=== PATIENT | female | born 1955 | race African-American/Black ===

== ENCOUNTER → 2017-06-09 | Outpatient (CLI) | payer MEDICARE ==
[2014-07-06 11:15] VITALS: BP 122/86
[~2017-06-09] MED LIST: ALBU8.5H8 IH; AZIT250T PO; Diltiazem Hcl PO; FERR325T14 PO; FURO-69 PO; Guaifenesin PO; HYDR-2680 PO; TIZA4TAB8 PO; TRAZ150T49 PO
== END | disposition home or self-care (01) ==
LOC: SURG 12:29
PROVIDERS: ATTEND Anesthesiology Pain Medicine
DX: M51.36 Other intervertebral disc degeneration, lumbar region (principal); I50.9 Heart failure, unspecified
CPT/HCPCS: 99213

== ENCOUNTER → 2017-09-01 | Outpatient (CLI) | payer MEDICARE ==
[2014-07-06 11:15] VITALS: BP 122/86
[~2017-09-01] MED LIST changes: +BUPIVACAINE MPF 0.25% 10 ML VIAL. ONE; +DEXAMETHASONE SOD PHOS 4 MG/ML VIAL ONE; +IOHEXOL 300 MG/ML 50 ML VIAL. ONE; +LIDOCAINE 1% PF 30 ML VIAL. ONE
== END ==
LOC: SURG 10:24
PROVIDERS: ATTEND Anesthesiology Pain Medicine
DX: M54.16 Radiculopathy, lumbar region (principal); M19.90 Unspecified osteoarthritis, unspecified site; I50.9 Heart failure, unspecified; J45.909 Unspecified asthma, uncomplicated; G47.30 Sleep apnea, unspecified
CPT/HCPCS: 64483; 64484; J1100; J2001; J3490; Q9967

== ENCOUNTER → 2018-02-09 | Outpatient (CLI) | payer MEDICARE ==
[2014-07-06 11:15] VITALS: BP 122/86
== END | disposition home or self-care (01) ==
LOC: SURG 08:32
PROVIDERS: ATTEND Anesthesiology Pain Medicine
DX: M47.816 Spondylosis without myelopathy or radiculopathy, lumbar region (principal); I25.2 Old myocardial infarction; G89.4 Chronic pain syndrome; Z88.8 Allergy status to other drugs, medicaments and biological substances; Z79.899 Other long term (current) drug therapy
CPT/HCPCS: 64483; 64484; J1100; J2001; J3490; Q9967

== ENCOUNTER → 2018-03-07 | Outpatient (CLI) | payer MEDICARE ==
[2014-07-06 11:15] VITALS: BP 122/86
[~2018-03-07] MED LIST changes: +LIDOCAINE 1% PF 2 ML VIAL. ONE; -LIDOCAINE 1% PF 30 ML VIAL. ONE; +LIDOCAINE 2% PF Vial for OR 5 ML VIAL. ONE
== END | disposition home or self-care (01) ==
LOC: SURG 11:33
PROVIDERS: ATTEND Anesthesiology Pain Medicine
DX: M47.26 Other spondylosis with radiculopathy, lumbar region (principal); I25.2 Old myocardial infarction; J45.909 Unspecified asthma, uncomplicated; G89.4 Chronic pain syndrome; G47.30 Sleep apnea, unspecified; Z79.899 Other long term (current) drug therapy; Z88.8 Allergy status to other drugs, medicaments and biological substances
CPT/HCPCS: 64483; 64484; J1100; J3490; Q9967; J2001

== ENCOUNTER → 2018-04-05 | Outpatient (CLI) | payer MEDICARE ==
[2014-07-06 11:15] VITALS: BP 122/86
[~2018-04-05] MED LIST changes: -BUPIVACAINE MPF 0.25% 10 ML VIAL. ONE; -DEXAMETHASONE SOD PHOS 4 MG/ML VIAL ONE; -IOHEXOL 300 MG/ML 50 ML VIAL. ONE; -LIDOCAINE 1% PF 2 ML VIAL. ONE; -LIDOCAINE 2% PF Vial for OR 5 ML VIAL. ONE
== END | disposition home or self-care (01) ==
LOC: SURG 14:30
PROVIDERS: ATTEND Anesthesiology Pain Medicine
DX: M47.26 Other spondylosis with radiculopathy, lumbar region (principal); G89.4 Chronic pain syndrome; J45.909 Unspecified asthma, uncomplicated; D64.89 Other specified anemias; F11.90 Opioid use, unspecified, uncomplicated
CPT/HCPCS: 99214

== ENCOUNTER → 2018-08-09 | Outpatient (CLI) | payer MEDICARE ==
[2014-07-06 11:15] VITALS: BP 122/86
[~2018-08-09] MED LIST changes: +0.9 % SODIUM CHLORIDE 10 ML VIAL ONE; +ALBU2.5V8 IH; -ALBU8.5H8 IH; +IOHEXOL 300 MG/ML 50 ML VIAL. ONE; +LIDOCAINE 1% PF 30 ML VIAL. ONE; +methylPREDNISolone ACETATE 80 MG/ML VIAL. ONE
== END | disposition home or self-care (01) ==
LOC: SURG 11:22
PROVIDERS: ATTEND Anesthesiology Pain Medicine
DX: M54.16 Radiculopathy, lumbar region (principal); I10 Essential (primary) hypertension; J45.909 Unspecified asthma, uncomplicated; I25.2 Old myocardial infarction; Z98.890 Other specified postprocedural states; Z79.899 Other long term (current) drug therapy; G89.4 Chronic pain syndrome; Z88.8 Allergy status to other drugs, medicaments and biological substances
CPT/HCPCS: 62323; J1040; J2001; Q9967

== ENCOUNTER 2019-02-23 18:58 | Inpatient (IN) | payer MEDICARE ==
[~2019-02-23] VITALS: Ht 157.5 cm; Wt 78.5 kg
[~2019-02-23 18:58] MED LIST changes: -0.9 % SODIUM CHLORIDE 10 ML VIAL ONE; -IOHEXOL 300 MG/ML 50 ML VIAL. ONE; -LIDOCAINE 1% PF 30 ML VIAL. ONE; -methylPREDNISolone ACETATE 80 MG/ML VIAL. ONE
--- NOTE | 2019-02-23 18:59 | ED.ADGEN ---
Past History Past Medical History: Anxiety, Asthma, Bronchitis, CAD, CHF, Hypertension, Other Past Surgical History: Coronary Bypass Surgery, Hysterectomy, Other Smoking: Cigarettes Alcohol Use: None Drug Use: None Adult General Chief Complaint Chief Complaint ". I am more short of breath today...." HPI HPI Patient is a 64 year old female who presents with above hx and complaints of dyspnea tht started 3 days ago. Patient has history of COPD, asthma, chronic bronchitis, coronary artery disease with bypass surgery 05/15/18, CHF, hypertension, tobacco use. Patient states she has been exposed to a sick friend recently who coughed and sneezed on her. Patient is concerned she may have been exposed to her friend's cold. No recent travel. No specific history of immunosuppression. Review of Systems Review of Systems Constitutional: Denies fever or chills [] Eyes: Denies change in visual acuity, redness, or eye pain [] HENT: Denies nasal congestion or sore throat [] Respiratory: Complains of a nonproductive cough and increased shortness of breath [] Cardiovascular: No additional information not addressed in HPI [] GI: Denies abdominal pain, nausea, vomiting, bloody stools or diarrhea [] : Denies dysuria or hematuria [] Musculoskeletal: Denies back pain or joint pain [] Integument: Denies rash or skin lesions [] Neurologic: Denies headache, focal weakness or sensory changes [] Endocrine: Denies polyuria or polydipsia [] All other systems were reviewed and found to be within normal limits, except as documented in this note. Family History Family History Noncontributory Current Medications Current Medications Current Medications Medications (Trade) Dose Ordered Sig/Jaime Start Time Stop Time Status Last Admin Dose Admin Acetaminophen (Tylenol) 650 mg PRN Q4HRS PRN 02/23/19 20:30 02/24/19 20:29 Albuterol/ Ipratropium (Duoneb) 3 ml STK-MED ONCE 02/23/19 19:11 02/23/19 19:11 DC Aspirin (Children'S Aspirin) 324 mg 1X ONCE 02/23/19 19:15 02/23/19 19:16 DC 02/23/19 20:29 324 MG Azithromycin (Zithromax) 500 mg 1X ONCE 02/23/19 19:45 02/23/19 19:46 DC 02/23/19 20:29 500 MG Ceftriaxone Sodium 1 gm/ Sodium Chloride 50 ml @ 100 mls/hr 1X ONCE 02/23/19 19:45 02/23/19 20:14 DC 02/23/19 20:29 100 MLS/HR Ceftriaxone Sodium (Rocephin) 1 gm STK-MED ONCE 02/23/19 20:21 02/23/19 20:21 DC Enoxaparin Sodium (Lovenox 60mg Syringe) 60 mg BID 02/23/19 21:00 02/23/19 20:51 60 MG Furosemide (Lasix) 40 mg 1X ONCE 02/23/19 20:30 02/23/19 20:31 DC 02/23/19 20:51 40 MG Lactated Ringer's 1,000 ml @ 100 mls/hr Q10H 02/23/19 19:01 02/24/19 05:00 Magnesium Sulfate 50 ml @ 25 mls/hr 1X ONCE 02/23/19 20:30 02/23/19 22:29 DC 02/23/19 20:47 25 MLS/HR Methylprednisolone Sodium Succinate (SOLU-Medrol 125MG VIAL) 125 mg 1X ONCE 02/23/19 19:15 02/23/19 19:16 DC 02/23/19 20:29 125 MG Morphine Sulfate (Morphine 2mg Syringe) 2 mg PRN Q4HRS PRN 02/23/19 20:30 02/24/19 20:29 02/24/19 03:48 2 MG Ondansetron HCl (Zofran) 4 mg PRN Q4HRS PRN 02/23/19 20:30 02/24/19 20:29 Sodium Chloride 50 ml @ As Directed STK-MED ONCE 02/23/19 20:21 02/23/19 20:21 DC Allergies Allergies Allergies Coded Allergies Type Severity Reaction Last Updated Verified cyclobenzaprine Allergy Severe hives 02/23/19 Yes Physical Exam Physical Exam Constitutional: Moderately Acute distress, non-toxic appearance. [] HENT: Normocephalic, atraumatic, bilateral external ears normal, oropharynx moist, no oral exudates, nose normal. [] Eyes: PERRLA, EOMI, conjunctiva normal, no discharge. [] Neck: Normal range of motion, no tenderness, supple, no stridor. [] JVD in the sitting position Cardiovascular:Heart rate regular rhythm, no murmur [], PMI to the left Lungs & Thorax: Bilateral breath sounds equal at apex with scattered wheezes throughout and bi-basilar crackles on auscultation []does have somewhat chronic nonproductive cough during exam Abdomen: Bowel sounds normal, soft, no tenderness, no masses, no pulsatile masses. [] Old surgery scar Skin: Warm, dry, no erythema, no rash. [] Back: No tenderness, no CVA tenderness. [] Extremities: No tenderness, no cyanosis, no clubbing, ROM intact, trace ankle edema. [] No cording appreciated Neurologic: Alert and oriented X 3, normal motor function, normal sensory function, no focal deficits noted. [] Psychologic: Affect anxious, judgement normal, mood normal. [] Current Patient Data Vital Signs Vital Signs Date Time Temp Pulse Resp B/P (MAP) Pulse Ox O2 Delivery O2 Flow Rate FiO2 02/23/19 20:50 84 28 136/86 (103) 96 Room Air 02/23/19 19:15 98.3 Lab Results Laboratory Tests Test 02/23/19 19:25 White Blood Count 9.5 x10^3/uL (4.0-11.0) Red Blood Count 5.07 x10^6/uL (3.50-5.40) Hemoglobin 13.8 g/dL (12.0-15.5) Hematocrit 41.9 % (36.0-47.0) Mean Corpuscular Volume 83 fL (79-100) Mean Corpuscular Hemoglobin 27 pg (25-35) Mean Corpuscular Hemoglobin Concent 33 g/dL (31-37) Red Cell Distribution Width 16.2 % (11.5-14.5) H Platelet Count 185 x10^3/uL (140-400) Neutrophils (%) (Auto) 79 % (31-73) H Lymphocytes (%) (Auto) 10 % (24-48) L Monocytes (%) (Auto) 6 % (0-9) Eosinophils (%) (Auto) 5 % (0-3) H Basophils (%) (Auto) 1 % (0-3) Neutrophils # (Auto) 7.5 x10^3uL (1.8-7.7) Lymphocytes # (Auto) 1.0 x10^3/uL (1.0-4.8) Monocytes # (Auto) 0.5 x10^3/uL (0.0-1.1) Eosinophils # (Auto) 0.4 x10^3/uL (0.0-0.7) Basophils # (Auto) 0.1 x10^3/uL (0.0-0.2) Erythrocyte Sedimentation Rate 6 (0-25) Prothrombin Time 9.9 SEC (9.4-11.4) Prothrombin Time INR 1.0 (0.9-1.1) Activated Partial Thromboplast Time 24 SEC (23-33) D-Dimer (Gavi) 0.84 mg/L (0.00-0.50) H Sodium Level 141 mmol/L (136-145) Potassium Level 3.6 mmol/L (3.5-5.1) Chloride Level 105 mmol/L (98-107) Carbon Dioxide Level 25 mmol/L (21-32) Anion Gap 11 (6-14) Blood Urea Nitrogen 20 mg/dL (7-20) Creatinine 1.4 mg/dL (0.6-1.0) H Estimated GFR (Cockcroft-Gault) 46.1 Glucose Level 121 mg/dL (70-99) H Lactic Acid Level 1.6 mmol/L (0.4-2.0) Calcium Level 8.8 mg/dL (8.5-10.1) Magnesium Level 1.7 mg/dL (1.8-2.4) L Total Bilirubin 0.4 mg/dL (0.2-1.0) Direct Bilirubin 0.1 mg/dL (0.0-0.2) Aspartate Amino Transferase (AST) 27 U/L (15-37) Alanine Aminotransferase (ALT) 20 U/L (14-59) Alkaline Phosphatase 77 U/L (46-116) Creatine Kinase 256 U/L (26-192) H Troponin I Quantitative 0.116 ng/mL (0-0.055) H IF-Wrr-P-Type Natriuretic Peptide 68901 pg/mL (0-124) H Total Protein 7.1 g/dL (6.4-8.2) Albumin 3.4 g/dL (3.4-5.0) Lipase 193 U/L (73-393) EKG EKG My interpretation of EKG shows a sinus rhythm at 79 bpm. Does have bimodal P- wave some leftward axis. LVH. There is some ST depression in lead I an II[] Radiology/Procedures Radiology/Procedures My interpretation chest x-ray shows cardiomegaly, chronic COPD changes, coronary artery bypass wires, some increased cephalization[] Course & Med Decision Making Course & Med Decision Making Pertinent Labs and Imaging studies reviewed. (See chart for details)\\\\ Pt. presentation, testing and tx plan discussed with Isaías- will admit and obtain a cardiology consult. [] Final Impression Final Impression 1. Dyspnea �3 days 2. History of asthma/bronchitis 3. COPD exacerbation 4. History coronary artery disease status post bypass 05/15/18 5. Elevated d-dimer 0.84 6 . Elevated troponin 0.116 7. CHF diastolic and systolic dysfunction BNP 14,000+ 8. Hypomagnesemia 1.7 9. Diabetes glucose 121 10. Elevated creatinine 1.4[] Dragon Disclaimer Dragon Disclaimer This electronic medical record was generated, in whole or in part, using a voice recognition dictation system. Dragon Disclaimer This chart was dictated in whole or in part using Voice Recognition software in a busy, high-work load, and often noisy Emergency Department environment. It may contain unintended and wholly unrecognized errors or omissions. Dragon Disclaimer This chart was dictated in whole or in part using Voice Recognition software in a busy, high-work load, and often noisy Emergency Department environment. It may contain unintended and wholly unrecognized errors or omissions. ELEAZAR MULLEN MD Feb 23, 2019 18:59
[2019-02-23] MEDS ORDERED: IV RINGERS SOLUTION,LACTATED 1,000 ML IV SCH (19:01)
[2019-02-23] MEDS ORDERED: IPRATRPIUM/ALBUTEROL 0.5/2.5MG 3 ML NEBU. ONE (19:11)
[2019-02-23] MEDS ORDERED: ASPIRIN 81 MG TAB.CHEW PO ONE (19:15)
[2019-02-23] MEDS ORDERED: methylPREDNISolone SOD SUCC PF 125 MG/2 ML VIAL. IV ONE (19:15)
[2019-02-23] MEDS ORDERED: LISI40TA PO (19:45)
[2019-02-23] MEDS ORDERED: AZITHROMYCIN 250 MG TABLET. PO ONE (19:45)
[2019-02-23 20:01] LABS: BASO # 0.1 x10^3/uL (0.0-0.2); BASO % 1 % (0-3); EOS # 0.4 x10^3/uL (0.0-0.7); EOS % 5 % (0-3); HEMATOCRIT 41.9 % (36.0-47.0); HEMOGLOBIN 13.8 g/dL (12.0-15.5); LYMPH % 10 % (24-48); MEAN CORPUSCULAR HEMOGLOBIN 27 pg (25-35); MEAN CORPUSCULAR HGB CONC 33 g/dL (31-37); MEAN CORPUSCULAR VOLUME 83 fL (79-100); MONO # 0.5 x10^3/uL (0.0-1.1); MONO % 6 % (0-9); NEUT # 7.5 x10^3uL (1.8-7.7); NEUT % 79 % (31-73); PLATELET COUNT 185 x10^3/uL (140-400); RED BLOOD COUNT 5.07 x10^6/uL (3.50-5.40); RED CELL DISTRIBUTION WIDTH 16.2 % (11.5-14.5); WHITE BLOOD COUNT 9.5 x10^3/uL (4.0-11.0)
[2019-02-23 20:09] LABS: ALBUMIN 3.4 g/dL (3.4-5.0); CALCIUM 8.8 mg/dL (8.5-10.1); CREATININE 1.4 mg/dL (0.6-1.0); DIRECT BILIRUBIN 0.1 mg/dL (0.0-0.2); GFR 46.1; MAGNESIUM 1.7 mg/dL (1.8-2.4); POTASSIUM 3.6 mmol/L (3.5-5.1); TOTAL BILIRUBIN 0.4 mg/dL (0.2-1.0); TOTAL PROTEIN 7.1 g/dL (6.4-8.2)
[2019-02-23] MEDS ORDERED: IV NORMAL SALINE 50ML 50 ML ONE (20:21)
[2019-02-23] MEDS ORDERED: cefTRIAXone SODIUM 1 GM VIAL ONE (20:21)
[2019-02-23] MEDS ORDERED: ENOXAPARIN ** NOTE DOSE ** SYRINGE SQ ONE (20:30)
[2019-02-23] MEDS ORDERED: MORPHINE SULFATE 2 MG/ML DISP.SYRIN. IV PRN (20:30)
[2019-02-23] MEDS ORDERED: ACETAMINOPHEN 325 MG TABLET PO PRN (20:30)
[2019-02-23] MEDS ORDERED: MAGNESIUM SULFATE 2GM 50 ML IV ONE (20:30)
[2019-02-23] MEDS ORDERED: ONDANSETRON PF 4 MG/2 ML VIAL. IV PRN (20:30)
[2019-02-23] MEDS ORDERED: FUROSEMIDE 40 MG/4 ML VIAL IVP ONE (20:30)
--- NOTE | 2019-02-23 20:35 | RAD ---
PA and lateral chest radiographs 02/23/2019 CLINICAL HISTORY: Shortness of breath and cough. PA and lateral digital radiographs of the chest were obtained. The patient is post median sternotomy. The cardiac silhouette is mildly enlarged. The thoracic aorta is mildly tortuous. No acute pulmonary infiltrate is seen. No pleural effusion or pneumothorax is noted. Mild degenerative changes are seen involving the thoracic spine. IMPRESSION: No acute abnormality is seen. Electronically signed by: Jair Regalado MD (02/23/2019 8:32 PM) [facility]
[2019-02-23] MEDS: ENOXAPARIN ** NOTE DOSE ** SYRINGE SQ SCH ×2 (20:48→20:50)
[2019-02-23] MEDS ORDERED: METO25TA4 PO (21:35)
[2019-02-23] MEDS ORDERED: BUDE10.2 IH (21:35)
[2019-02-23 22:05] LABS: BACTERIA,URINE 0 /HPF (0-FEW); BARBITURATES NEG (NEG); BENZODIAZEPINES NEG (NEG); BILIRUBIN,URINE NEG (NEG); CANNABINOIDS NEG (NEG); CLARITY,URINE CLEAR; COCAINE NEG (NEG); COLOR,URINE STRAW; GLUCOSE,URINE NEG (NEG); METHADONE NEG (NEG); NITRITE,URINE NEG (NEG); OPIATES NEG (NEG); PHENCYCLIDINE NEG (NEG); RBC,URINE RARE /HPF (0-2); SQUAMOUS EPITHELIAL CELL,UR OCC /LPF; UROBILINOGEN,URINE 0.2 mg/dL (0.2 mg/dL); WBC,URINE 0 /HPF (0-4)
[2019-02-23 22:07] LABS: AMPHETAMINE/METHAMPHETAMINE NEG (NEG)
[2019-02-23 22:09] VITALS: BP 150/102
[2019-02-24 01:55] VITALS: BP 164/95
[2019-02-24 03:03] VITALS: BP 138/87
[2019-02-24 06:08] VITALS: BP 125/72
[2019-02-24 07:00] LABS: BASO % 0 % (0-3); EOS % 0 % (0-3); HEMATOCRIT 42.4 % (36.0-47.0); HEMOGLOBIN 13.7 g/dL (12.0-15.5); LYMPH # 0.4 x10^3/uL (1.0-4.8); LYMPH % 6 % (24-48); MEAN CORPUSCULAR HEMOGLOBIN 27 pg (25-35); MEAN CORPUSCULAR HGB CONC 32 g/dL (31-37); MEAN CORPUSCULAR VOLUME 84 fL (79-100); MONO # 0.1 x10^3/uL (0.0-1.1); MONO % 1 % (0-9); NEUT # 6.4 x10^3uL (1.8-7.7); NEUT % 93 % (31-73); PLATELET COUNT 216 x10^3/uL (140-400); RED BLOOD COUNT 5.08 x10^6/uL (3.50-5.40); WHITE BLOOD COUNT 6.9 x10^3/uL (4.0-11.0)
[2019-02-24 07:15] LABS: CALCIUM 8.5 mg/dL (8.5-10.1); CREATININE 1.4 mg/dL (0.6-1.0); GFR 46.1; POTASSIUM 4.2 mmol/L (3.5-5.1)
--- NOTE | 2019-02-24 07:38 | RAD ---
LEFT LEG VENOUS DOPPLER STUDY: Clinical indications: Edema and elevated d-dimer.. Findings: Duplex sonography (including em scale evaluation and color flow and waveform spectral analysis) of the proximal aspect of the greater saphenous vein and the proximal aspect of the profunda femoral vein and the entire length of the common femoral and superficial femoral and popliteal veins and the tibioperoneal trunk and the proximal aspect of the posterior tibial and peroneal veins of the left leg was performed. Normal compressibility, augmentation of color Doppler flow after calf compression, and respiratory variation of Doppler flow is seen. Thus, there are no sonographic findings of deep venous thrombosis within these veins. Impression: There are no sonographic findings of deep venous thrombosis within the veins discussed above of the left lower extremity. RIGHT LEG VENOUS DOPPLER STUDY: Clinical indications: Edema and elevated d-dimer.. Findings: Duplex sonography (including em scale evaluation and color flow and waveform spectral analysis) of the proximal aspect of the greater saphenous vein and proximal aspect of the profunda femoral vein and the entire length of the common femoral and superficial femoral and popliteal veins and the tibioperoneal trunk and the proximal aspect of the posterior tibial and peroneal veins of the right leg was performed. Normal compressibility, augmentation of color Doppler flow after calf compression, and respiratory variation of Doppler flow is seen. Thus, there are no sonographic findings of deep venous thrombosis within these veins. Impression: There are no sonographic findings of deep venous thrombosis within the veins discussed above of the right lower extremity. Electronically signed by: Joey Craig MD (02/24/2019 7:36 AM) [facility]
[2019-02-24] MEDS ORDERED: HYDROcodone/APAP 10/325 1 TAB TABLET PO PRN (08:00)
[2019-02-24] MEDS: IPRATRPIUM/ALBUTEROL 0.5/2.5MG 3 ML NEBU. NEB SCH ×2 (08:18→09:20)
[2019-02-24] MEDS: ENOXAPARIN ** NOTE DOSE ** SYRINGE SQ SCH (08:19)
[2019-02-24] MEDS ORDERED: guaiFENesin DM 600/30MG 1 TAB TAB.ER.12H PO SCH (09:00)
[2019-02-24] MEDS ORDERED: LACTOBACILLUS RHAMNOSUS GG 1 CAPSULE. PO SCH (09:00)
[2019-02-24] MEDS ORDERED: AZITHROMYCIN 250 MG TABLET. PO SCH (09:00)
[2019-02-24] MEDS ORDERED: ASPIRIN 81 MG TAB.CHEW PO SCH (09:00)
[2019-02-24] MEDS ORDERED: METOPROLOL TART IMMED RELEASE 25 MG TABLET PO SCH (09:00)
--- NOTE | 2019-02-24 10:37 | PDOC2 ---
CONSULT Date of Admission DATE: 02/24/19 TIME: 10:37 Reason for Consult: Congestive heart failure Referring Physician: Dr. Metz Chief Complaint Shortness of breath Source: Chart review, Patient Problem List Problems Medical Problems: (1) Dyspnea Status: Acute History of Present Illness 64-year-old female with history of coronary artery disease s/p CABG presented complaining of 2-3 day history of progressive shortness of breath. She denied any chest pain, palpitations or syncope. Her symptoms improved significantly after diuresis. Upon further interrogation, she stated that she has not been compliant with her oral salt intake restrictions. Past Medical History Coronary artery disease s/p CABG in April 2018, followed by [facility] cardiology COPD/asthma Hypertension Hyperlipidemia Past Surgical History Coronary artery bypass surgery Lumpectomy Laparotomy Family History: Hypertension Social History Patient quit smoking 9 months ago and admitted to social intake of alcohol. She denied any drug abuse. Current Medications Current Medications Aspirin (Children'S Aspirin) 324 mg 1X ONCE PO Last administered on 02/23/19at 20:29; Start 02/23/19 at 19:15; Stop 02/23/19 at 19:16; Status DC Lactated Ringer's 1,000 ml @ 100 mls/hr Q10H IV ; Start 02/23/19 at 19:01; Stop 02/24/19 at 05:00; Status DC Methylprednisolone Sodium Succinate (SOLU-Medrol 125MG VIAL) 125 mg 1X ONCE IV Last administered on 02/23/19at 20:29; Start 02/23/19 at 19:15; Stop 02/23/19 at 19:16; Status DC Albuterol/ Ipratropium (Duoneb) 3 ml STK-MED ONCE .ROUTE ; Start 02/23/19 at 19:11; Stop 02/23/19 at 19:11; Status DC Azithromycin (Zithromax) 500 mg 1X ONCE PO Last administered on 02/23/19at 20:29; Start 02/23/19 at 19:45; Stop 02/23/19 at 19:46; Status DC Ceftriaxone Sodium 1 gm/ Sodium Chloride 50 ml @ 100 mls/hr 1X ONCE IV Last administered on 02/23/19at 20:29; Start 02/23/19 at 19:45; Stop 02/23/19 at 20:14; Status DC Magnesium Sulfate 50 ml @ 25 mls/hr 1X ONCE IV Last administered on 02/23/19at 20:47; Start 02/23/19 at 20:30; Stop 02/23/19 at 22:29; Status DC Furosemide (Lasix) 40 mg 1X ONCE IVP Last administered on 02/23/19at 20:51; Start 02/23/19 at 20:30; Stop 02/23/19 at 20:31; Status DC Sodium Chloride 50 ml @ As Directed STK-MED ONCE .ROUTE ; Start 02/23/19 at 20:21; Stop 02/23/19 at 20:21; Status DC Ceftriaxone Sodium (Rocephin) 1 gm STK-MED ONCE .ROUTE ; Start 02/23/19 at 20:21; Stop 02/23/19 at 20:21; Status DC Enoxaparin Sodium (Lovenox 60mg Syringe) 60 mg 1X ONCE SQ Last administered on 02/23/19at 20:47; Start 02/23/19 at 20:30; Stop 02/23/19 at 20:31; Status DC Ondansetron HCl (Zofran) 4 mg PRN Q4HRS PRN IV NAUSEA/VOMITING; Start 02/23/19 at 20:30; Stop 02/24/19 at 20:29 Morphine Sulfate (Morphine 2mg Syringe) 2 mg PRN Q4HRS PRN IV PAIN Last administered on 02/24/19at 03:48; Start 02/23/19 at 20:30; Stop 02/24/19 at 20:29 Acetaminophen (Tylenol) 650 mg PRN Q4HRS PRN PO FEVER; Start 02/23/19 at 20:30; Stop 02/24/19 at 20:29 Albuterol/ Ipratropium (Duoneb) 3 ml RTQID NEB Last administered on 02/24/19at 09:22; Start 02/24/19 at 08:00; Stop 02/25/19 at 07:59 Enoxaparin Sodium (Lovenox 60mg Syringe) 60 mg BID SQ Last administered on 02/24/19at 08:19; Start 02/23/19 at 21:00 Aspirin (Children'S Aspirin) 81 mg DAILY PO Last administered on 02/24/19at 08:19; Start 02/24/19 at 09:00 Azithromycin (Zithromax) 250 mg DAILY PO Last administered on 02/24/19at 08:19; Start 02/24/19 at 09:00 Lactobacillus Rhamnosus (Culturelle) 1 cap BID PO Last administered on 02/24/19at 08:19; Start 02/24/19 at 09:00 Acetaminophen/ Hydrocodone Bitart (Lortab 10/325) 1 tab PRN BID PRN PO PAIN; Start 02/24/19 at 08:00 Metoprolol Tartrate (Lopressor) 25 mg BID PO Last administered on 02/24/19at 08:19; Start 02/24/19 at 09:00 Guaifenesin (MUCINEX ER with DM) 1 tab BID PO Last administered on 02/24/19at 08:19; Start 02/24/19 at 09:00 Active Scripts Active [Guaifenesin] 600 MG Tablet.er 600 Mg PO DAILY Reported Metoprolol Tartrate 25 Mg Tablet 25 Mg PO BID Symbicort 160-4.5 Mcg Inhaler (Budesonide/Formoterol Fumarate) 10.2 Gm Hfa.aer.ad 2 Puff IH BID Proair Hfa Inhaler (Albuterol Sulfate) 8.5 Gm Hfa.aer.ad 8.5 Gm IH PRN Q8HRS PRN Indication: Breathing treatment Last Dose: 11/15/13 at 1400 Next Dose: 11/15/13 at 7 PM Lortab 10-325 mg Tablet (Hydrocodone/Acetaminophen) 1 Each Tablet 1 Each PO BID last dose: 11/15/13 at 0800 Allergies: Coded Allergies: cyclobenzaprine (Verified Allergy, Severe, hives, 02/23/19) PSYCHOLOGICAL ROS: No: Hallucinations Eyes: No: Loss of vision HEENT: No: Epistaxis Respiratory: YES: Shortness of breath Cardiovascular: No: Chest Pain Gastrointestinal: No: Vomiting, Diarrhea Genitourinary: No: [place] Neurological: No: Seizures Skin: No: Rash General: Alert, Oriented X3 HEENT: Atraumatic, PERRLA Lungs: Clear to auscultation Heart: Regular rate Abdomen: Soft Extremities: No edema Psych/Mental Status: Mood NL VITALS Vital Signs Date Time Temp Pulse Resp B/P (MAP) Pulse Ox O2 Delivery O2 Flow Rate FiO2 02/24/19 09:22 97 Room Air 02/24/19 08:19 98 125/72 02/24/19 06:08 98.0 18 2.0 Labs Laboratory Tests Test 02/23/19 19:25 02/23/19 21:41 02/24/19 06:22 02/24/19 07:41 White Blood Count 9.5 x10^3/uL (4.0-11.0) 6.9 x10^3/uL (4.0-11.0) Red Blood Count 5.07 x10^6/uL (3.50-5.40) 5.08 x10^6/uL (3.50-5.40) Hemoglobin 13.8 g/dL (12.0-15.5) 13.7 g/dL (12.0-15.5) Hematocrit 41.9 % (36.0-47.0) 42.4 % (36.0-47.0) Mean Corpuscular Volume 83 fL (79-100) 84 fL (79-100) Mean Corpuscular Hemoglobin 27 pg (25-35) 27 pg (25-35) Mean Corpuscular Hemoglobin Concent 33 g/dL (31-37) 32 g/dL (31-37) Red Cell Distribution Width 16.2 % (11.5-14.5) 16.0 % (11.5-14.5) Platelet Count 185 x10^3/uL (140-400) 216 x10^3/uL (140-400) Neutrophils (%) (Auto) 79 % (31-73) 93 % (31-73) Lymphocytes (%) (Auto) 10 % (24-48) 6 % (24-48) Monocytes (%) (Auto) 6 % (0-9) 1 % (0-9) Eosinophils (%) (Auto) 5 % (0-3) 0 % (0-3) Basophils (%) (Auto) 1 % (0-3) 0 % (0-3) Neutrophils # (Auto) 7.5 x10^3uL (1.8-7.7) 6.4 x10^3uL (1.8-7.7) Lymphocytes # (Auto) 1.0 x10^3/uL (1.0-4.8) 0.4 x10^3/uL (1.0-4.8) Monocytes # (Auto) 0.5 x10^3/uL (0.0-1.1) 0.1 x10^3/uL (0.0-1.1) Eosinophils # (Auto) 0.4 x10^3/uL (0.0-0.7) 0.0 x10^3/uL (0.0-0.7) Basophils # (Auto) 0.1 x10^3/uL (0.0-0.2) 0.0 x10^3/uL (0.0-0.2) Erythrocyte Sedimentation Rate 6 (0-25) Prothrombin Time 9.9 SEC (9.4-11.4) Prothromb Time International Ratio 1.0 (0.9-1.1) Activated Partial Thromboplast Time 24 SEC (23-33) D-Dimer (Gavi) 0.84 mg/L (0.00-0.50) Sodium Level 141 mmol/L (136-145) 136 mmol/L (136-145) Potassium Level 3.6 mmol/L (3.5-5.1) 4.2 mmol/L (3.5-5.1) Chloride Level 105 mmol/L (98-107) 102 mmol/L (98-107) Carbon Dioxide Level 25 mmol/L (21-32) 22 mmol/L (21-32) Anion Gap 11 (6-14) 12 (6-14) Blood Urea Nitrogen 20 mg/dL (7-20) 22 mg/dL (7-20) Creatinine 1.4 mg/dL (0.6-1.0) 1.4 mg/dL (0.6-1.0) Estimated GFR (Cockcroft-Gault) 46.1 46.1 Glucose Level 121 mg/dL (70-99) 286 mg/dL (70-99) Lactic Acid Level 1.6 mmol/L (0.4-2.0) Calcium Level 8.8 mg/dL (8.5-10.1) 8.5 mg/dL (8.5-10.1) Magnesium Level 1.7 mg/dL (1.8-2.4) Total Bilirubin 0.4 mg/dL (0.2-1.0) Direct Bilirubin 0.1 mg/dL (0.0-0.2) Aspartate Amino Transf (AST/SGOT) 27 U/L (15-37) Alanine Aminotransferase (ALT/SGPT) 20 U/L (14-59) Alkaline Phosphatase 77 U/L (46-116) Creatine Kinase 256 U/L (26-192) Troponin I Quantitative 0.116 ng/mL (0-0.055) 0.058 ng/mL (0-0.055) SP-Hza-L-Type Natriuretic Peptide 97711 pg/mL (0-124) Total Protein 7.1 g/dL (6.4-8.2) Albumin 3.4 g/dL (3.4-5.0) Lipase 193 U/L (73-393) Urine Collection Type Unknown Urine Color Straw Urine Clarity Clear Urine pH 5.5 Urine Specific [place] 1.010 Urine Protein Neg (NEG-TRACE) Urine Glucose (UA) Neg mg/dL (NEG) Urine Ketones (Stick) Neg mg/dL (NEG) Urine Blood Trace (NEG) Urine Nitrite Neg (NEG) Urine Bilirubin Neg (NEG) Urine Urobilinogen Dipstick 0.2 mg/dL (0.2 mg/dL) Urine Leukocyte Esterase Neg (NEG) Urine RBC Rare /HPF (0-2) Urine WBC 0 /HPF (0-4) Urine Squamous Epithelial Cells Occ /LPF Urine Bacteria 0 /HPF (0-FEW) Urine Opiates Screen Neg (NEG) Urine Methadone Screen Neg (NEG) Urine Barbiturates Neg (NEG) Urine Phencyclidine Screen Neg (NEG) Urine Amphetamine/Methamphetamine Neg (NEG) Urine Benzodiazepines Screen Neg (NEG) Urine Cocaine Screen Neg (NEG) Urine Cannabinoids Screen Neg (NEG) Urine Ethyl Alcohol Neg (NEG) Glucose (Fingerstick) 172 mg/dL (70-99) Assessment/Plan 1. Congestive heart failure, most probably acute on chronic diastolic. Symptoms improved with diuresis. Importance of compliance with oral fluid and salt intake restrictions reemphasized. Continue current medical regimen and follow-up with primary cardiology. 2. CAD s/p recent CABG in April 2019, clinically stable and chest pain-free. Continue current secondary prevention measures. 3. Hypertension: Controlled Thank you for your consultation MAGGIE BARRETT MD Feb 24, 2019 10:37
[2019-02-24 10:45] LABS: THYROID STIM HORMONE (TSH) 2.159 uIU/mL (0.358-3.740)
[2019-02-24] MEDS ORDERED: FUROSEMIDE 40 MG/4 ML VIAL IVP ONE (11:00)
[2019-02-24 11:36] VITALS: BP 115/65
[2019-02-24] MEDS ORDERED: FURO-69 PO (13:32)
--- NOTE | 2019-02-24 14:19 | SSS ---
ADMIT DATE: HISTORY OF PRESENT ILLNESS: Ms. Bosch is a 64-year-old -[place] female patient who came to the Emergency Room complaining of increasing shortness of breath that has started about 3 days ago. She apparently is known to have COPD/asthma and chronic bronchitis, coronary artery disease for which she underwent bypass surgery on 05/15/2018. She is known to have congestive heart failure, hypertension. She has been exposed to a sick friend recently who coughed and sneezed on her. Patient is concerned that she may have been exposed to her friend's cold. She was basically extensively investigated and her EKG showed that she was in sinus rhythm with a rate of 79 beats per minute, but no ST segment elevation or depression. Chest x-ray showed chronic COPD changes. She has had lab work done, which basically showed no leukocytosis. Her sed rate was only 6 mm per hour and D-dimer was 0.84 and her chemistry showed that her first set of troponin was 0.116; and therefore, the patient was admitted to consult the cardiology team. PAST MEDICAL HISTORY: Significant for hypertension, hyperlipidemia, coronary artery disease, status post coronary bypass surgery on 05/15/2018. She is also known to have chronic obstructive pulmonary disease/bronchial asthma and history of cardiac arrest prior to her open heart surgery. PAST SURGICAL HISTORY: Significant for coronary artery bypass graft surgery, removal of growth from her right shoulder and left breast lumpectomy, exploratory laparotomy for bowel obstruction. ALLERGIES: She is allergic to FLEXERIL. MEDICATIONS: She is currently on following medications: She is on albuterol sulfate for ProAir 1 puff every 8 hours, metoprolol tartrate 25 mg twice a day, hydrocodone/APAP 10/325 one tablet twice a day. She is on Symbicort 160/4.5 two puffs twice a day, Mucinex 600 mg twice a day. FAMILY HISTORY: She has one sister, younger and healthy. Father , but does not know the age or the cause of his . Mother has sickle cell disease and at the age of 60. SOCIAL HISTORY: She is , she has 2 daughters and 2 sons. She quit smoking 9 months ago prior to her coronary bypass surgery. She drinks wine occasionally. Does not use any drugs. REVIEW OF SYSTEMS: As per history of present illness. PHYSICAL EXAMINATION GENERAL: When I examined her, she looked well and was clearly in no apparent respiratory distress. No pallor, jaundice, cyanosis or thyromegaly. No jugular venous distention. No lower limb edema. VITAL SIGNS: Her heart rate was 98, blood pressure was 125/72, temperature was 98, respiratory rate was 18 and oxygen saturation was 98% on room air. HEAD, EYES, EARS, NOSE AND THROAT: Showed normocephalic, atraumatic. NECK: Supple. HEART: Showed normal first and second heart sounds with no gallop or murmur. CHEST: Clear to auscultation. Very few scattered rhonchi and few bilateral basal crepitation. ABDOMEN: Distended, soft, nontender. NEUROLOGIC: She is awake, alert, responding appropriately. All cranial nerves intact. EXTREMITIES: She moves extremities without difficulty. LABORATORY DATA: While in the Emergency Room, she has had lab work done, which showed a white cell count of 9500, hemoglobin 13.8, hematocrit 42, MCV 83 and platelet count of 185,000. Her chemistry showed a serum sodium of 141, potassium 3.6, chloride 105, bicarbonate 25, anion gap of 11, BUN 20, creatinine 1.4, estimated GFR was 46 mL per minute. Her glucose 121, calcium was 8.8, magnesium was 1.7. Total bilirubin, AST, ALT, alkaline phosphatase were normal. CK was high at 259. Troponin was 0.116. Her beta natriuretic peptide was 14,148. Total protein 7.1, albumin was 3.4. Her serum lipase 193. ASSESSMENT AND PLAN: The patient was admitted and had another set of cardiac enzyme, showed troponin down to 0.058. She was seen by the Cardiology team who did not really recommend any further ischemic workup, but she has coronary bypass graft surgery only 9 months ago and she was treated with Lasix. I recommended the patient can be discharged to continue on oral Lasix and follow with her primary care physician. She apparently has dietary indiscretion and took large amount of cashew nuts with salt. MEDICATIONS: She was discharged home to continue on Lasix 20 mg once a day, albuterol sulfate 1 inhaler every 8 hours. Continue with Symbicort 2 puffs twice a day, Mucinex 600 mg twice a day, hydrocodone/APAP 10/325 twice a day, metoprolol 25 mg twice a day. ASSESSMENT AND PLAN: Acute diastolic congestive heart failure, responding to Lasix. Other medical problems include mild elevated troponin, coronary artery disease, status post coronary artery bypass surgery, chronic obstructive pulmonary disease, chronic kidney injury on questionable type 2 diabetes. The patient was advised to avoid high salt diet and nonsteroidal anti-inflammatory medication. Follow with her primary care physician regarding her possible hyperglycemia and diabetes. ONUR GONZALEZ MD DR: DORETHA/shari JOB#: [id number] / [id number]
--- NOTE | 2019-02-25 03:36 | EKG ---
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
--- NOTE | 2019-02-25 03:36 | EKG ---
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
[2019-02-25] MEDS ORDERED: FUROSEMIDE 20 MG TABLET PO SCH (09:00)
[2019-02-26 00:06] LABS: HEMOGLOBIN A1C 5.7 % (4.8-5.6)
== END 2019-02-24 14:07 | disposition home or self-care (01) | DRG 292 ==
LOC: ER 18:58 → 1 SOUTH 21:10
PROVIDERS: ADMIT Internal Medicine; ATTEND Internal Medicine
DX: I11.0 Hypertensive heart disease with heart failure (principal); J44.1 Chronic obstructive pulmonary disease with (acute) exacerbation; E78.5 Hyperlipidemia, unspecified; I50.33 Acute on chronic diastolic (congestive) heart failure; I25.10 Atherosclerotic heart disease of native coronary artery without angina pectoris; F41.9 Anxiety disorder, unspecified; E83.42 Hypomagnesemia; Z82.49 Family history of ischemic heart disease and other diseases of the circulatory system; Z83.2 Family history of diseases of the blood and blood-forming organs and certain disorders involving the immune mechanism; Z86.74 Personal history of sudden cardiac arrest; Z87.891 Personal history of nicotine dependence; Z91.19 Patient's noncompliance with other medical treatment and regimen; Z95.1 Presence of aortocoronary bypass graft; Z88.8 Allergy status to other drugs, medicaments and biological substances
CPT/HCPCS: 36415; 71046; 80048; 80061; 80076; 80307; 81001; 82550; 82947; 83036; 83605; 83690; 83735; 83880; 84443; 84484; 85025; 85379; 85610; 85651; 85730; 87040; 93005; 93970; 94640; 96365; 96372; 96375; G0238; J0456; J0696; J1650; J1940; J2270; J2930; J3475; J7620; 99285-25

== ENCOUNTER 2019-07-10 08:40 | Emergency (ER) | payer MEDICARE ==
[~2019-07-10] VITALS: Ht 157.5 cm; Wt 79.8 kg
[~2019-07-10 08:40] MED LIST changes: +BUDE10.2 IH; +LISI40TA PO; +METO25TA4 PO
[2019-07-10 08:44] VITALS: BP 157/77
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
[2019-07-10] MEDS ORDERED: HYDROcodone/APAP 10/325 1 TAB TABLET ONE (10:20)
[2019-07-10] MEDS ORDERED: HYDROcodone/APAP 10/325 1 TAB TABLET PO ONE (10:30)
== END 2019-07-10 10:43 | disposition home or self-care (01) ==
LOC: ER 08:40
DX: S16.1XXA Strain of muscle, fascia and tendon at neck level, initial encounter (principal); R51 Headache; I10 Essential (primary) hypertension; F17.210 Nicotine dependence, cigarettes, uncomplicated; G89.29 Other chronic pain; Z95.1 Presence of aortocoronary bypass graft; Z88.8 Allergy status to other drugs, medicaments and biological substances; Z90.710 Acquired absence of both cervix and uterus; V43.52XA Car driver injured in collision with other type car in traffic accident, initial encounter; Y93.89 Activity, other specified; Y92.488 Other paved roadways as the place of occurrence of the external cause; Y99.8 Other external cause status
CPT/HCPCS: 70450; 72125; 99284

== ENCOUNTER 2019-09-02 20:52 | Emergency (ER) | payer MEDICARE ==
[~2019-09-02] VITALS: Ht 157.5 cm; Wt 79.8 kg
--- NOTE | 2019-09-02 21:38 | PHYS DOC ---
Past History Past Medical History: Hypertension, Other Additional Past Medical Histor: chronic back pain Past Surgical History: Coronary Bypass Surgery, Hysterectomy Additional Past Surgical Histo: part of heart removed due to cardiomyopathy Smoking: Cigarettes Alcohol Use: None Drug Use: None Adult General Chief Complaint Chief Complaint: ABDOMINAL PAIN [facility] HPI 64-year-old female presents with left-sided abdominal pain. She has had this pain for 2 days. It started out as a sharp pain on the left side that radiated through to her back. It was intermittent yesterday. It came back today and it is more painful. The patient has a history of previous intestinal blockage that was repaired surgically. This was many years ago. Patient denies history of kidney stones. She has frequent urination at baseline. She denies dysuria or change in urine color. She had a bowel movement earlier today. She denies fever or chills. Review of Systems Review of Systems Constitutional: Denies fever or chills [] Eyes: Denies change in visual acuity, redness, or eye pain [] HENT: Denies nasal congestion or sore throat [] Respiratory: Denies cough or shortness of breath [] Cardiovascular: No additional information not addressed in HPI [] GI: Left-sided abdominal pain. Denies nausea, vomiting, bloody stools or diarrhea [] : Denies dysuria or hematuria [] Musculoskeletal: Denies back pain or joint pain [] Integument: Denies rash or skin lesions [] Neurologic: Denies headache, focal weakness or sensory changes [] Endocrine: Denies polyuria or polydipsia [] All other systems were reviewed and found to be within normal limits, except as documented in this note. Current Medications Current Medications Current Medications Medications (Trade) Dose Ordered Sig/Jaime Start Time Stop Time Status Last Admin Dose Admin Iohexol (Omnipaque 300 Mg/ml) 75 ml 1X ONCE 09/02/19 21:30 09/02/19 21:31 UNV Sodium Chloride 1,000 ml @ 1,000 mls/hr 1X ONCE 09/02/19 21:30 09/02/19 22:29 UNV Allergies Allergies Allergies Coded Allergies Type Severity Reaction Last Updated Verified cyclobenzaprine Allergy Severe hives 02/23/19 Yes Physical Exam Physical Exam Constitutional: Well developed, obese, well nourished, no acute distress, non- toxic appearance. [] HENT: Normocephalic, atraumatic, bilateral external ears normal, oropharynx moist, no oral exudates, nose normal. [] Eyes: PERRLA, EOMI, conjunctiva normal, no discharge. [] Neck: Normal range of motion, no tenderness, supple, no stridor. [] Cardiovascular: Heart rate regular rhythm, no murmur [] Lungs & Thorax: Bilateral breath sounds clear to auscultation [] Abdomen: Bowel sounds normal, soft, Left sided tenderness, no masses, no pulsatile masses. [] Skin: Warm, dry, no erythema, no rash. [] Back: No tenderness, no CVA tenderness. [] Extremities: No tenderness, no cyanosis, no clubbing, ROM intact, no edema. [] Neurologic: Alert and oriented X 3, normal motor function, normal sensory function, no focal deficits noted. [] Psychologic: Affect normal, judgement normal, mood normal. [] EKG EKG [] Radiology/Procedures Radiology/Procedures [] Impressions: CT abdomen pelvis with contrast dated 09/02/2019. No comparison available. CLINICAL INDICATION: Abdominal pain. TECHNIQUE: Per contiguous axial imaging the abdomen and pelvis performed after the administration of 75 cc Omnipaque 300. One or more of the following individualized dose reduction techniques were utilized for this examination: 1. Automated exposure control 2. Adjustment of the mA and/or kV according to patient size 3. Use of iterative reconstruction technique. FINDINGS: Limited images of lung bases show patchy and linear opacity in the dependent lower lobes, likely atelectasis. Heart size is moderately enlarged. No pleural or pericardial effusion. Prominent mitral valve calcification. Liver is homogeneous. No apparent mass. Biliary tree normal in caliber. The gallbladder is collapsed and not well evaluated. Spleen is normal in size. There is a vague area of low density at the peripheral spleen measures 2.7 cm, indeterminate. Pancreas, adrenal glands and kidneys are unremarkable. There are well-circumscribed low-density foci at the right kidney, likely cysts. No hydronephrosis. Unopacified GI tract normal in caliber and contour. No focal bowel wall thickening. No inflammatory stranding in the mesentery. The appendix is normal in caliber. No ascites or lymphadenopathy. Abdominal aorta normal in caliber. Atherosclerotic calcification at the left renal artery origin suggesting a moderate grade narrowing. Images of pelvis show mild diffuse wall thickening of the urinary bladder. The uterus is surgically absent. No free fluid or lymphadenopathy. Small bilateral inguinal hernia containing only fat. Bone windows show no acute findings. Mild multilevel spondylosis. IMPRESSION: 1. No acute abnormality of abdomen or pelvis. Normal appendix. 2. Vague wedge shaped area of low density in the peripheral spleen is of uncertain etiology. This could represent a small splenic infarct. If indicated, biphasic CTA could better evaluate. 3. Status post hysterectomy. 4. Small bilateral inguinal hernia containing only fat. Electronically signed by: Rosalino Woods MD (09/02/2019 10:19 PM) [id number] DICTATED AND SIGNED BY: ROSALINO WOODS MD DATE: 09/02/192218 CC: JAYLA RESTREPO DO; IBETH SWANSON MD ~ Course & Med Decision Making Course & Med Decision Making Pertinent Labs and Imaging studies reviewed. (See chart for details) The patient's labs are unremarkable. Her urinalysis is unremarkable. The pain seems out of proportion to exam. She has been given 1 mg Dilaudid for pain. The patient takes chronic pain medication daily. CT the abdomen and pelvis shows possible splenic infarct. CT angiogram was ordered. This again demonstrates likely area of splenic infarct. I will patient to the hospital for further evaluation and management. The patient had a cardiac surgery at [facility] and would prefer to be admitted to that facility. I spoke with Dr. Car and she has accepted the patient for transfer and admission. The patient will go by ambulance. [] Dragon Disclaimer Dragon Disclaimer This electronic medical record was generated, in whole or in part, using a voice recognition dictation system. Departure Departure: Impression: Primary Impression: Splenic infarct Disposition: XFER [facility] HOSP Condition: STABLE Referrals: IBETH SWANSON MD (PCP) JAYLA RESTREPO DO Sep 02, 2019 21:37
[2019-09-02] MEDS ORDERED: CONTRAST GIVEN MC PRN (21:45)
[2019-09-02] MEDS ORDERED: IV NORMAL SALINE 1,000ML 1,000 ML IV ONE (22:00)
[2019-09-02] MEDS ORDERED: IOHEXOL 300 MG/ML 75 ML VIAL. IV ONE (22:00)
[2019-09-02 22:01] LABS: BASO # 0.1 x10^3/uL (0.0-0.2); BASO % 1 % (0-3); EOS # 0.3 x10^3/uL (0.0-0.7); EOS % 5 % (0-3); HEMATOCRIT 40.6 % (36.0-47.0); HEMOGLOBIN 13.3 g/dL (12.0-15.5); LYMPH # 2.1 x10^3/uL (1.0-4.8); LYMPH % 31 % (24-48); MEAN CORPUSCULAR HEMOGLOBIN 27 pg (25-35); MEAN CORPUSCULAR HGB CONC 33 g/dL (31-37); MEAN CORPUSCULAR VOLUME 83 fL (79-100); MONO # 0.6 x10^3/uL (0.0-1.1); MONO % 9 % (0-9); NEUT # 3.5 x10^3uL (1.8-7.7); NEUT % 53 % (31-73); PLATELET COUNT 172 x10^3/uL (140-400); RED BLOOD COUNT 4.87 x10^6/uL (3.50-5.40); RED CELL DISTRIBUTION WIDTH 15.9 % (11.5-14.5); WHITE BLOOD COUNT 6.6 x10^3/uL (4.0-11.0)
[2019-09-02 22:07] LABS: COLOR,URINE STRAW
[2019-09-02 22:08] LABS: BACTERIA,URINE 0 /HPF (0-FEW); BILIRUBIN,URINE NEG (NEG); CALCIUM 8.4 mg/dL (8.5-10.1); CLARITY,URINE CLOUDY; GLUCOSE,URINE NEG (NEG); NITRITE,URINE NEG (NEG); POTASSIUM 3.9 mmol/L (3.5-5.1); RBC,URINE 0 /HPF (0-2); SQUAMOUS EPITHELIAL CELL,UR OCC /LPF; UROBILINOGEN,URINE 0.2 mg/dL (0.2 mg/dL)
[2019-09-02 22:14] LABS: ALBUMIN/GLOBULIN RATIO 0.9 (1.0-1.7); TOTAL BILIRUBIN 0.1 mg/dL (0.2-1.0); TOTAL PROTEIN 6.4 g/dL (6.4-8.2)
--- NOTE | 2019-09-02 22:22 | RAD ---
CT abdomen pelvis with contrast dated 09/02/2019. No comparison available. CLINICAL INDICATION: Abdominal pain. TECHNIQUE: Per contiguous axial imaging the abdomen and pelvis performed after the administration of 75 cc Omnipaque 300. One or more of the following individualized dose reduction techniques were utilized for this examination: 1. Automated exposure control 2. Adjustment of the mA and/or kV according to patient size 3. Use of iterative reconstruction technique. FINDINGS: Limited images of lung bases show patchy and linear opacity in the dependent lower lobes, likely atelectasis. Heart size is moderately enlarged. No pleural or pericardial effusion. Prominent mitral valve calcification. Liver is homogeneous. No apparent mass. Biliary tree normal in caliber. The gallbladder is collapsed and not well evaluated. Spleen is normal in size. There is a vague area of low density at the peripheral spleen measures 2.7 cm, indeterminate. Pancreas, adrenal glands and kidneys are unremarkable. There are well-circumscribed low-density foci at the right kidney, likely cysts. No hydronephrosis. Unopacified GI tract normal in caliber and contour. No focal bowel wall thickening. No inflammatory stranding in the mesentery. The appendix is normal in caliber. No ascites or lymphadenopathy. Abdominal aorta normal in caliber. Atherosclerotic calcification at the left renal artery origin suggesting a moderate grade narrowing. Images of pelvis show mild diffuse wall thickening of the urinary bladder. The uterus is surgically absent. No free fluid or lymphadenopathy. Small bilateral inguinal hernia containing only fat. Bone windows show no acute findings. Mild multilevel spondylosis. IMPRESSION: 1. No acute abnormality of abdomen or pelvis. Normal appendix. 2. Vague wedge shaped area of low density in the peripheral spleen is of uncertain etiology. This could represent a small splenic infarct. If indicated, biphasic CTA could better evaluate. 3. Status post hysterectomy. 4. Small bilateral inguinal hernia containing only fat. Electronically signed by: Rosalino Woods MD (09/02/2019 10:19 PM) [id number]
[2019-09-02] MEDS ORDERED: ONDANSETRON PF 4 MG/2 ML VIAL. ONE (23:15)
[2019-09-02] MEDS ORDERED: HYDROmorphone PF 1 MG/ML DISP.SYRIN IV ONE (23:30)
[2019-09-02] MEDS ORDERED: ONDANSETRON PF 4 MG/2 ML VIAL. IVP ONE (23:30)
[2019-09-02] MEDS ORDERED: IOHEXOL 350 MG/ML 100 ML VIAL. IV ONE (23:45)
--- NOTE | 2019-09-03 00:42 | RAD ---
CT angiogram of the abdomen and pelvis with contrast: Reason for examination: Splenic abnormality on previous CT. 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 Helical images were obtained through the abdomen pelvis with intravenous administration of 100 cc Omnipaque 350 using angiographic protocol. 3-D MIPS reconstruction was performed in sagittal and coronal planes. Exposure: One or more of the following individualized dose reduction techniques were utilized for this examination: 1. Automated exposure control 2. Adjustment of the mA and/or kV according to patient size 3. Use of iterative reconstruction technique. Lung bases show some atelectasis posteriorly at both bases. No pleural effusions are seen. The heart size is upper normal with no pericardial effusion. There appears to be a small 1 cm hemangioma anteriorly in the left lobe of the liver. 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 No abnormality seen at the adrenal glands, gallbladder or pancreas. The abdominal aorta shows no aneurysmal dilatation or dissection. No abnormality seen at the inferior vena cava. No abnormality seen at the appendix. The colon shows no diverticulosis, diverticulitis or colitis. The stomach shows no abnormal dilatation, wall thickening or obstruction. Small intestinal tract shows no abnormalities. The kidneys show small hypodense lesions consistent with cysts in the right kidney. No follow-up imaging is recommended per consensus recommendations based on imaging criteria. No renal calculi, hydronephrosis or obstructive uropathy is evident. No abnormality seen at the bladder or vaginal cuff. No free fluid or free air seen in the abdomen or pelvis. No acute bony abnormalities seen. Fat-containing inguinal hernias are seen bilaterally. IMPRESSION: Linear atelectasis at the lung bases. Persistent wedge-shaped defect posteriorly in the spleen which corresponds to the area of abnormality seen on earlier CT consistent with a splenic infarct. 1 cm hemangioma in the left lobe of the liver. Electronically signed by: Brittany Staley MD (09/03/2019 12:39 AM) [facility]
[2019-09-03 02:45] VITALS: BP 134/70
== END 2019-09-03 03:11 | disposition short-term general hospital (02) ==
LOC: ER 20:52
DX: I10 Essential (primary) hypertension (principal); F17.210 Nicotine dependence, cigarettes, uncomplicated; Z95.1 Presence of aortocoronary bypass graft; Z88.8 Allergy status to other drugs, medicaments and biological substances
CPT/HCPCS: 36415; 74174; 74177; 80053; 81001; 85025; 96374; 96375; 99285; J1170; J2405; Q9967; J7030

== ENCOUNTER → 2019-12-25 | Outpatient (CLI) | payer MEDICARE ==
[~2019-12-25] MED LIST changes: +ASPI-630 PO; +BUPIVACAINE MPF 0.25% 10 ML VIAL. ONE; +DEXAMETHASONE SOD PHOS 4 MG/ML VIAL. ONE; +HYDR-2769 PO; +LIDOCAINE 1% PF 30 ML VIAL. ONE; +METH-38 PO
[2019-12-25 11:27] VITALS: BP 136/74
== END ==
LOC: SURG 10:31
PROVIDERS: ATTEND Anesthesiology
DX: M54.5 Low back pain (principal); M54.16 Radiculopathy, lumbar region; J45.909 Unspecified asthma, uncomplicated; D64.9 Anemia, unspecified
CPT/HCPCS: 64483; 64484; J1100; J2001; J3490

== ENCOUNTER 2020-02-23 03:59 | Emergency (ER) | payer MEDICARE ==
[~2020-02-23] VITALS: Ht 157.5 cm; Wt 76.0 kg
[~2020-02-23 03:59] MED LIST changes: -ASPI-630 PO; -BUPIVACAINE MPF 0.25% 10 ML VIAL. ONE; -DEXAMETHASONE SOD PHOS 4 MG/ML VIAL. ONE; -HYDR-2769 PO; -LIDOCAINE 1% PF 30 ML VIAL. ONE
[2020-02-23 04:12] VITALS: BP 151/85
--- NOTE | 2020-02-23 04:15 | PHYS DOC ---
Past History Past Medical History: Asthma, Constipation, Hypertension, Other Additional Past Medical Histor: chronic back pain Past Surgical History: Hysterectomy Additional Past Surgical Histo: part of heart removed due to cardiomyopathy-lt vent/septal myectomy Smoking: Cigarettes Alcohol Use: None Drug Use: None Adult General Chief Complaint Chief Complaint: SKIN PROBLEM HPI HPI Patient is a 65-year-old female who presents with right elbow skin problem. Onset was 3 days ago. Nothing known makes better or worse. Patient has history of ingrown hairs and abscesses with x1 abscess of right upper extremity requiring incisional drainage and surgery under general anesthesia. Patient reports development of white pimple-like head which concerned her and after googling potential diagnoses she got concerned leading her to our ER for evaluation. She denies constitutional symptoms, no fever, no chest pain, no MRSA history, no palpable fluctuance or crepitus at site of concern Review of Systems Review of Systems Fourteen body systems of review of systems have been reviewed. See HPI for pertinent positives and negative responses, other hanson all other systems are negative, non-pertinent or non-contributory Allergies Allergies Allergies Coded Allergies Type Severity Reaction Last Updated Verified cyclobenzaprine Allergy Severe hives 12/25/19 Yes Physical Exam Physical Exam Constitutional: Well developed, well nourished, no acute distress, non-toxic appearance. HENT: Normocephalic, atraumatic, bilateral external ears normal, oropharynx moist, no oral exudates, nose normal. Eyes: PERRLA, EOMI, conjunctiva normal, no discharge. Neck: Normal range of motion, no tenderness, supple, no stridor. Cardiovascular: Heart rate regular on monitor Lungs & Thorax: Bilateral chest rise Abdomen: Bowel sounds normal, soft, no tenderness, no masses, no pulsatile masses. Nonsurgical abdomen, no peritoneal signs Skin: Warm, dry, no erythema, no rash. X1 inflamed follicle of right extensor surface of elbow, uncomplicated, no expression of any purulent exudate on attempt, no crepitus, no streaking, erythema, or edema Back: No tenderness, no CVA tenderness. Extremities: No tenderness, no cyanosis, no clubbing, ROM intact, no edema. Neurologic: Alert and oriented X 3, grossly normal motor & sensory function, no focal deficits noted. Psychologic: Affect normal, judgement normal, mood normal. EKG EKG [] Radiology/Procedures Radiology/Procedures [] Course & Med Decision Making Course & Med Decision Making Well-appearing grossly asymptomatic patient seen on immediate ER arrival ABCs non-concerning Comprehensive history and physical exam obtained, no emergent or surgical findings this visit Discussed role of supportive care for right elbow skin problem, discussed this is likely self-limited and would respond well to warm compresses daily Patient has PCP and is able to be seen within upcoming 3 to 6 days time, I feel this is appropriate to ensure continued symptomatic resolution. Strict return precautions discussed with good understanding by patient, all questions and concerns addressed prior to ER departure in stable condition Dragon Disclaimer Dragon Disclaimer This electronic medical record was generated, in whole or in part, using a voice recognition dictation system. Departure Departure: Impression: Primary Impression: Skin pimple Disposition: HOME/RESIDENCE PRIOR TO ADM Condition: STABLE Referrals: IBETH SWANSON MD (PCP) Justification of Admission: Justification of Admission: Justification of Admission Dx: N/A SHIRIN AGUILERA DO Feb 23, 2020 04:15
== END 2020-02-23 04:58 | disposition home or self-care (01) ==
LOC: ER 03:59
DX: R23.8 Other skin changes (principal); J45.909 Unspecified asthma, uncomplicated; I10 Essential (primary) hypertension; G89.29 Other chronic pain; F17.210 Nicotine dependence, cigarettes, uncomplicated; Z88.8 Allergy status to other drugs, medicaments and biological substances
CPT/HCPCS: 99281

== ENCOUNTER → 2020-03-11 | Outpatient (CLI) | payer MEDICARE ==
[~2020-03-11] MED LIST changes: +0.9 % SODIUM CHLORIDE 10 ML VIAL. ONE; +ASPI-630 PO; +BUPIVACAINE MPF 0.25% 10 ML VIAL. ONE; +DEXAMETHASONE SOD PHOS 10 MG/ML VIAL. ONE; +HYDR-2769 PO; +IOHEXOL 300 MG/ML 50 ML VIAL. ONE; +LIDOCAINE 1% PF 30 ML VIAL. ONE
[2020-03-11 12:04] VITALS: BP 144/74
== END | disposition home or self-care (01) ==
LOC: SURG 11:04
PROVIDERS: ATTEND Anesthesiology
DX: M54.16 Radiculopathy, lumbar region (principal); M54.5 Low back pain; J45.909 Unspecified asthma, uncomplicated; G47.33 Obstructive sleep apnea (adult) (pediatric); Z88.8 Allergy status to other drugs, medicaments and biological substances
CPT/HCPCS: 64483; 64484; J1100; J2001; J3490; Q9967

== ENCOUNTER → 2020-10-21 | Day surgery (SDC) | payer MEDICARE ==
[~2020-10-21] MED LIST changes: -0.9 % SODIUM CHLORIDE 10 ML VIAL. ONE; -LISI40TA PO; +LISI40TA6 PO
[2020-10-21 10:59] VITALS: BP 136/63
== END | disposition home or self-care (01) ==
LOC: SURG 10:34
PROVIDERS: ATTEND Anesthesiology
DX: M54.16 Radiculopathy, lumbar region (principal); I50.9 Heart failure, unspecified; I25.2 Old myocardial infarction; I11.0 Hypertensive heart disease with heart failure; E78.5 Hyperlipidemia, unspecified; G47.30 Sleep apnea, unspecified; F41.9 Anxiety disorder, unspecified; I25.10 Atherosclerotic heart disease of native coronary artery without angina pectoris; J45.909 Unspecified asthma, uncomplicated; M19.90 Unspecified osteoarthritis, unspecified site; Z90.710 Acquired absence of both cervix and uterus; Z95.1 Presence of aortocoronary bypass graft; Z86.74 Personal history of sudden cardiac arrest; Z79.899 Other long term (current) drug therapy; Z79.82 Long term (current) use of aspirin; Z88.8 Allergy status to other drugs, medicaments and biological substances; Z87.891 Personal history of nicotine dependence; Z82.49 Family history of ischemic heart disease and other diseases of the circulatory system
CPT/HCPCS: 64483; 64484; J1100; J3490; Q9967

== ENCOUNTER → 2021-04-07 | Day surgery (SDC) | payer MEDICARE ==
[2021-04-07 09:56] VITALS: BP 142/88
== END | disposition home or self-care (01) ==
LOC: SURG 09:06
PROVIDERS: ATTEND Anesthesiology
DX: M47.26 Other spondylosis with radiculopathy, lumbar region (principal); M48.061 Spinal stenosis, lumbar region without neurogenic claudication; M79.10 Myalgia, unspecified site; I25.2 Old myocardial infarction; I50.9 Heart failure, unspecified; M19.90 Unspecified osteoarthritis, unspecified site; Z90.710 Acquired absence of both cervix and uterus; Z98.890 Other specified postprocedural states; Z79.899 Other long term (current) drug therapy; Z79.82 Long term (current) use of aspirin; Z87.891 Personal history of nicotine dependence; Z88.8 Allergy status to other drugs, medicaments and biological substances; Z71.82 Exercise counseling
CPT/HCPCS: 64483; 64484; J1100; J3490; Q9967

== ENCOUNTER 2021-09-21 03:51 | Emergency (ER) | payer MEDICARE ==
[~2021-09-21] VITALS: Ht 157.5 cm; Wt 90.6 kg
[~2021-09-21 03:51] MED LIST changes: -BUPIVACAINE MPF 0.25% 10 ML VIAL. ONE; -DEXAMETHASONE SOD PHOS 10 MG/ML VIAL. ONE; -IOHEXOL 300 MG/ML 50 ML VIAL. ONE; -LIDOCAINE 1% PF 30 ML VIAL. ONE
[2021-09-21] MEDS ORDERED: IV NORMAL SALINE 1,000ML 1,000 ML IV ONE (04:15)
[2021-09-21] MEDS ORDERED: ADENOSINE 6 MG/2 ML VIAL IV ONE ×4 (04:15→04:30)
[2021-09-21] MEDS: ADENOSINE 6 MG/2 ML VIAL IV ONE ×2 (04:15→04:21)
[2021-09-21 04:25] LABS: BASO # 0.2 x10^3/uL (0.0-0.2); BASO % 3 % (0-3); EOS # 0.5 x10^3/uL (0.0-0.7); EOS % 6 % (0-3); HEMATOCRIT 42.4 % (36.0-47.0); HEMOGLOBIN 13.8 g/dL (12.0-15.5); LYMPH # 2.9 x10^3/uL (1.0-4.8); LYMPH % 35 % (24-48); MEAN CORPUSCULAR HEMOGLOBIN 27 pg (25-35); MEAN CORPUSCULAR HGB CONC 33 g/dL (31-37); MEAN CORPUSCULAR VOLUME 82 fL (79-100); MONO # 0.5 x10^3/uL (0.0-1.1); MONO % 6 % (0-9); NEUT # 4.2 x10^3uL (1.8-7.7); NEUT % 51 % (31-73); PLATELET COUNT 220 x10^3/uL (140-400); RED BLOOD COUNT 5.15 x10^6/uL (3.50-5.40); RED CELL DISTRIBUTION WIDTH 15.7 % (11.5-14.5); WHITE BLOOD COUNT 8.3 x10^3/uL (4.0-11.0)
[2021-09-21 04:30] LABS: CALCIUM 8.8 mg/dL (8.5-10.1); GFR 67.5; POTASSIUM 4.6 mmol/L (3.5-5.1)
[2021-09-21] MEDS ORDERED: dilTIAZem 25 MG/5 ML VIAL IVP ONE (04:30)
--- NOTE | 2021-09-21 04:32 | PHYS DOC ---
Past History Past Medical History: Asthma, Constipation, Hypertension, Other Additional Past Medical Histor: chronic back pain Past Surgical History: Hysterectomy Additional Past Surgical Histo: part of heart removed due to cardiomyopathy-lt vent/septal myectomy Smoking: Cigarettes Alcohol Use: None Drug Use: None General Adult EDM: Chief Complaint: CHEST PAIN HPI: HPI: 66-year-old female presents via EMS with chest pain and high heart rate. The patient was sleeping and when she woke up a couple hours ago, she was having chest pain and felt like her heart was racing. She called EMS. When EMS arrived they did a twelve-lead and it appeared to be SVT. They prioritize transferring the patient versus treatment. He did have an IV established prior to arrival but had not given adenosine. Patient states she has a history of A. fib has not heard of SVT. She had some kind of cardiac procedure done as she has a central scar but is unable to tell me what exactly she had done. She denies pacemaker or bypass. The patient's chest pain is a 10 out of 10. She took an aspirin prior to EMS arrival. Review of Systems: Review of Systems: Constitutional: Denies fever or chills Eyes: Denies change in visual acuity HENT: Denies nasal congestion or sore throat Respiratory: Denies cough or shortness of breath Cardiovascular: Chest pain, tachyarrhythmia GI: Denies abdominal pain, nausea, vomiting, bloody stools or diarrhea : Denies dysuria Musculoskeletal: Denies back pain or joint pain Integument: Denies rash Neurologic: Denies headache, focal weakness or sensory changes Endocrine: Denies polyuria or polydipsia Lymphatic: Denies swollen glands Psychiatric: Denies depression or anxiety Current Medications: Current Meds: Current Medications Medications (Trade) Dose Ordered Sig/Jaime Start Time Stop Time Status Last Admin Dose Admin Adenosine (Adenocard) 12 mg 1X ONCE 09/21/21 04:30 09/21/21 04:31 Diltiazem HCl (Cardizem Iv Push) 20 mg 1X ONCE 09/21/21 04:30 09/21/21 04:31 UNV Sodium Chloride 1,000 ml @ 1,000 mls/hr 1X ONCE 09/21/21 04:15 09/21/21 05:14 09/21/21 04:20 1,000 MLS/HR Allergies: Allergies: Allergies Coded Allergies Type Severity Reaction Last Updated Verified cyclobenzaprine Allergy Severe hives 10/21/20 Yes Physical Exam: PE: Constitutional: Well developed, well nourished, no acute distress, non-toxic appearance. [] HENT: Normocephalic, atraumatic, bilateral external ears normal, oropharynx moist, no oral exudates, nose normal. [] Eyes: PERRLA, EOMI, conjunctiva normal, no discharge. [] Neck: Normal range of motion, no tenderness, supple, no stridor. [] Cardiovascular:Heart rate regular rhythm, no murmur [] Lungs & Thorax: Bilateral breath sounds clear to auscultation [] Abdomen: Bowel sounds normal, soft, no tenderness, no masses, no pulsatile masses. [] Skin: Warm, dry, no erythema, no rash. [] Back: No tenderness, no CVA tenderness. [] Extremities: No tenderness, no cyanosis, no clubbing, ROM intact, no edema. [] Neurologic: Alert and oriented X 3, normal motor function, normal sensory function, no focal deficits noted. [] Psychologic: Affect normal, judgement normal, mood normal. [] Current Patient Data: Labs: Laboratory Tests Test 09/21/21 03:58 White Blood Count 8.3 x10^3/uL (4.0-11.0) Red Blood Count 5.15 x10^6/uL (3.50-5.40) Hemoglobin 13.8 g/dL (12.0-15.5) Hematocrit 42.4 % (36.0-47.0) Mean Corpuscular Volume 82 fL (79-100) Mean Corpuscular Hemoglobin 27 pg (25-35) Mean Corpuscular Hemoglobin Concent 33 g/dL (31-37) Red Cell Distribution Width 15.7 % (11.5-14.5) H Platelet Count 220 x10^3/uL (140-400) Neutrophils (%) (Auto) 51 % (31-73) Lymphocytes (%) (Auto) 35 % (24-48) Monocytes (%) (Auto) 6 % (0-9) Eosinophils (%) (Auto) 6 % (0-3) H Basophils (%) (Auto) 3 % (0-3) Neutrophils # (Auto) 4.2 x10^3uL (1.8-7.7) Lymphocytes # (Auto) 2.9 x10^3/uL (1.0-4.8) Monocytes # (Auto) 0.5 x10^3/uL (0.0-1.1) Eosinophils # (Auto) 0.5 x10^3/uL (0.0-0.7) Basophils # (Auto) 0.2 x10^3/uL (0.0-0.2) EKG: EKG: Irregular rhythm, rate 172, normal axis, no significant ST elevation or depression. [] Radiology/Procedures: Radiology/Procedures: [] Heart Score: C/O Chest Pain: Yes HEART Score for Chest Pain: HEART Score for Chest Pain Response (Comments) Value History Moderately Suspicious 1 ECG Nonspecific Repolarizatio 1 Age >45 - < 65 1 Risk Factors 1 or 2 Risk Factors 1 Troponin >1-<3x Normal Limit 1 Total 5 Risk Factors: Risk Factors: DM, Current or recent (<one month) smoker, HTN, HLP, family history of CAD, obesity. Risk Scores: Score 0 - 3: 2.5% MACE over next 6 weeks - Discharge Home Score 4 - 6: 20.3% MACE over next 6 weeks - Admit for Clinical Observation Score 7 - 10: 72.7% MACE over next 6 weeks - Early Invasive Strategies Course & Med Decision Making: Course & Med Decision Making Pertinent Labs and Imaging studies reviewed. (See chart for details) On arrival we placed a more proximal IV. The patient was hemodynamically stable. We gave 6 mg of adenosine. It was unsuccessful. We did an additional 2 doses of 12 mg each. Each time, the patient had the expected pause, but she went right back to her rate in the 160s to 180s. We then gave 20 mg of Cardizem IV push. This improved the patient's heart rate into the low 100s. We started a Cardizem drip. 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 they do not have any beds available at this time. The patient's labs are unremarkable except for an elevated troponin of 59. This is likely due to demand ischemia. We will trend her troponin. Her heart score is currently a 5. I spoke with the hospitalist, Dr. Parks and he has accepted the patient for transfer to [facility]. [] Dragon Disclaimer: Dragon Disclaimer: This electronic medical record was generated, in whole or in part, using a voice recognition dictation system. Departure Departure: Impression: Primary Impression: SVT (supraventricular tachycardia) Additional Impressions: Chest pain Elevated troponin Disposition: 02 SHORT TERM HOSPITAL Condition: STABLE Referrals: IBETH SWANSON MD (PCP) JAYLA RESTREPO DO Sep 21, 2021 04:32
--- NOTE | 2021-09-21 04:32 | EKG ---
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
[2021-09-21 04:35] LABS: ALBUMIN 3.3 g/dL (3.4-5.0); TOTAL BILIRUBIN 0.3 mg/dL (0.2-1.0); TOTAL PROTEIN 6.5 g/dL (6.4-8.2)
[2021-09-21] MEDS ORDERED: IV NORMAL SALINE 100ML 100 ML ONE (04:37)
[2021-09-21] MEDS ORDERED: dilTIAZem VIAL 125 MG in IV NORMAL SALINE 100ML 100 ML IV PRN (04:45)
[2021-09-21] MEDS ORDERED: ONDANSETRON PF 4 MG/2 ML VIAL. IVP ONE (04:45)
[2021-09-21] MEDS ORDERED: MORPHINE SULFATE 2 MG/ML DISP.SYRIN. IV ONE (04:45)
--- NOTE | 2021-09-21 05:29 | RAD ---
EXAM: XR CHEST 1V 09/21/2021 4:50 AM CLINICAL INDICATION: SVT COMPARISON: None TECHNIQUE: AP view of the chest FINDINGS: There are median sternotomy wires. The heart is enlarged. Mild diffuse interstitial promin ence. No pleural effusion or pneumothorax. No acute osseous abnormality. IMPRESSION: Cardiomegaly. Mild diffuse interstitial prominence, which may indicate pulmonary vascula r congestion. Electronically signed by: Jessica Rubin MD (09/21/2021 5:26 AM) [facility]
[2021-09-21 05:53] LABS: INFLUENZA A PATIENT NEGATIVE (NEGATIVE); INFLUENZA B PATIENT NEGATIVE (NEGATIVE)
[2021-09-21 06:05] VITALS: BP 140/77
--- NOTE | 2021-09-21 06:43 | EKG ---
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
== END 2021-09-21 06:07 | disposition short-term general hospital (02) ==
LOC: ER 03:51
DX: I47.1 Supraventricular tachycardia (principal); R77.8 Other specified abnormalities of plasma proteins; J45.909 Unspecified asthma, uncomplicated; I10 Essential (primary) hypertension; G89.29 Other chronic pain; F17.210 Nicotine dependence, cigarettes, uncomplicated; Z20.822 Contact with and (suspected) exposure to COVID-19; Z88.8 Allergy status to other drugs, medicaments and biological substances
CPT/HCPCS: 36415; 71045; 80053; 84484; 85025; 87428; 93005; 96365; 96374; 96375; 96376; 99285; C9803; J0153; J2270; J2405; J3490; J7030; U0003

== ENCOUNTER 2021-10-16 01:35 | Emergency (ER) | payer MEDICARE ==
[~2021-10-16] VITALS: Ht 157.5 cm; Wt 79.1 kg
--- NOTE | 2021-10-16 01:59 | PHYS DOC ---
Past History Past Medical History: Asthma, Constipation, Hypertension, Other Additional Past Medical Histor: chronic back pain, part of heart removed due to cardiomyopathy Past Surgical History: Hysterectomy, Other Additional Past Surgical Histo: part of heart removed due to cardiomyopathy-lt vent/septal myectomy Smoking: Cigarettes Alcohol Use: None Drug Use: None Adult General Chief Complaint Chief Complaint: SHORTNESS OF BREATH HPI HPI Patient is a 66-year-old female with a past medical history MS, open heart surge ry, CHF of COPD/asthma and who presents with a chief complaint of a day of shortness of breath. States she has some generalized chest tightness but no pain. Denies any recent travels, traumas, illnesses, fevers, abdominal pain, nausea, vomiting, diarrhea. Making urine and stool normally for her. Denies any known ill contacts. States she is eating and drinking normally for her. States has been taking all her medications as prescribed. Review of Systems Review of Systems Review of systems otherwise unremarkable except noted in HPI Allergies Allergies Allergies Coded Allergies Type Severity Reaction Last Updated Verified cyclobenzaprine Allergy Severe hives 10/21/20 Yes Physical Exam Physical Exam Constitutional: Well developed, well nourished, no acute distress, non-toxic appearance. [] HENT: Normocephalic, atraumatic, oropharynx moist, nose normal. [] Eyes: conjunctiva normal, no discharge. [] Neck: Normal range of motion, no tenderness, supple, no stridor. [] Cardiovascular:Heart rate regular rhythm, no murmur [] Lungs & Thorax: Bilateral breath sounds clear to auscultation [] Abdomen: soft, no tenderness, no masses, no pulsatile masses. [] Skin: Warm, dry, no erythema, no rash. [] Extremities: No tenderness, ROM intact, no edema. [] Neurologic: Alert and oriented X 3, able to sit, stand and walk, no focal deficits noted. [] Psychologic: Affect normal, judgement normal, mood normal. [] EKG EKG [] Radiology/Procedures Radiology/Procedures [] Heart Score C/O Chest Pain: No Risk Factors: Risk Factors: DM, Current or recent (<one month) smoker, HTN, HLP, family history of CAD, obesity. Risk Scores: Risk Factors: DM, Current or recent (<one month) smoker, HTN, HLP, family history of CAD, obesity. Course & Med Decision Making Course & Med Decision Making Patient is a 66-year-old female who presents with a chief complaint of shortness of breath Vital signs notable for hypertension. Physical exam noted above. EKG with a rate of 53, QRS 106, QTc of 445, no STEMI however there are some T wave inversions and 1 and aVL. High-sensitivity troponin at 80 with cutoff for female 51. BNP greater than 16,000. And creatinine of 1.6 Started on nitroglycerin and CPAP for scape. Given aspirin. Discussed all findings with patient. Advised admission to the hospital for continued evaluation and treatment of her hypertension and pulmonary edema. Patient grateful, verbalized understanding and agreed with plan of transfer and admission. Dragon Disclaimer Dragon Disclaimer This electronic medical record was generated, in whole or in part, using a voice recognition dictation system. Departure Departure: Impression: Primary Impression: Shortness of breath Additional Impressions: Pulmonary edema Elevated troponin YESI (acute kidney injury) Disposition: 02 SHORT TERM HOSPITAL Condition: STABLE Referrals: IBETH SWANSON MD (PCP) Problem Qualifiers SHOAIB SALEH MD Oct 16, 2021 01:59
[2021-10-16 02:18] LABS: BASO # 0.1 x10^3/uL (0.0-0.2); BASO % 1 % (0-3); EOS # 0.3 x10^3/uL (0.0-0.7); EOS % 4 % (0-3); HEMATOCRIT 36.2 % (36.0-47.0); HEMOGLOBIN 11.8 g/dL (12.0-15.5); LYMPH # 1.9 x10^3/uL (1.0-4.8); LYMPH % 28 % (24-48); MEAN CORPUSCULAR HEMOGLOBIN 27 pg (25-35); MEAN CORPUSCULAR HGB CONC 33 g/dL (31-37); MEAN CORPUSCULAR VOLUME 82 fL (79-100); MONO # 0.5 x10^3/uL (0.0-1.1); MONO % 7 % (0-9); NEUT # 4.2 x10^3uL (1.8-7.7); NEUT % 60 % (31-73); PLATELET COUNT 231 x10^3/uL (140-400); RED BLOOD COUNT 4.41 x10^6/uL (3.50-5.40); RED CELL DISTRIBUTION WIDTH 15.5 % (11.5-14.5); WHITE BLOOD COUNT 6.9 x10^3/uL (4.0-11.0)
[2021-10-16 02:26] LABS: CALCIUM 8.8 mg/dL (8.5-10.1); CREATININE 1.6 mg/dL (0.6-1.0); GFR 39.3; POTASSIUM 4.3 mmol/L (3.5-5.1)
[2021-10-16] MEDS ORDERED: NITROGLYCERIN PREMIX 250 ML IV ONE ×3 (02:30→03:32)
[2021-10-16 02:38] LABS: ALBUMIN 3.4 g/dL (3.4-5.0); ALBUMIN/GLOBULIN RATIO 1.1 (1.0-1.7); MAGNESIUM 1.8 mg/dL (1.8-2.4); TOTAL BILIRUBIN 0.4 mg/dL (0.2-1.0); TOTAL PROTEIN 6.5 g/dL (6.4-8.2)
--- NOTE | 2021-10-16 03:07 | RAD ---
Study: XR CHEST 1V Indication: Shortness of breath. Comparison: 09/21/2021 Findings: Status post median sternotomy. Redemonstrated enlargement of the cardiomediastinal silhouette. Genera lized interstitial prominence. Streaky densities at the lower lungs in part atelectasis. No lobar con solidation or pneumothorax. No large effusion. Impression: Enlarged cardiomediastinal silhouette and interstitial edema. Considering upright imaging no definiti ve pleural effusion. Electronically signed by: JACOB JULIO MD (10/16/2021 3:04 AM) [facility]
[2021-10-16] MEDS ORDERED: ASPIRIN CHEWABLE 81 MG TABLET. PO ONE (04:15)
--- NOTE | 2021-10-16 05:41 | EKG ---
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
[2021-10-16 06:51] LABS: BACTERIA,URINE FEW /HPF (0-FEW); CLARITY,URINE CLEAR; COLOR,URINE YELLOW; GLUCOSE,URINE NEG (NEG); NITRITE,URINE NEG (NEG); RBC,URINE 0 /HPF (0-2); SQUAMOUS EPITHELIAL CELL,UR MOD /LPF; UROBILINOGEN,URINE 0.2 mg/dL (0.2 mg/dL); WBC,URINE 0 /HPF (0-4)
[2021-10-16 07:10] VITALS: BP 140/70
== END 2021-10-16 07:22 | disposition short-term general hospital (02) ==
LOC: ER 01:35
DX: N17.9 Acute kidney failure, unspecified (principal); R77.8 Other specified abnormalities of plasma proteins; I11.0 Hypertensive heart disease with heart failure; I50.1 Left ventricular failure, unspecified; J45.909 Unspecified asthma, uncomplicated; G89.29 Other chronic pain; I25.2 Old myocardial infarction; F17.210 Nicotine dependence, cigarettes, uncomplicated; Z20.822 Contact with and (suspected) exposure to COVID-19; Z88.8 Allergy status to other drugs, medicaments and biological substances
CPT/HCPCS: 36415; 71045; 80053; 81001; 83735; 83880; 84484; 85025; 87426; 93005; 94660; 96361; 96374; 99285; C9803; J3010; J3490; U0003